=== PATIENT | male | born 1965 | race African-American/Black ===

== ENCOUNTER 2021-01-21 09:06 | Emergency (ER) | payer MEDICAID ==
[~2021-01-21] VITALS: Ht 185.4 cm; Wt 95.0 kg
[2021-01-21 09:43] VITALS: BP 137/85
[2021-01-21] MEDS ORDERED: MORPHINE SULFATE 4 MG/ML CPJ (NOT FOR IM USE) IV STA (09:43)
[2021-01-21] MEDS ORDERED: SODIUM CHLORIDE 0.9% 1,000 ML IV ONE (09:45)
[2021-01-21 09:59] LABS: HEMATOCRIT. 44.1 % (42.0-52.0); HEMOGLOBIN. 14.9 g/dL (14.0-18.0); MEAN CORPUSCULAR HEMOGLOBIN 28.3 pg (28.0-32.0); MEAN CORPUSCULAR VOLUME 83.4 fL (80.0-94.0); PLATELET 150 x1000/uL (130-400); RED BLOOD CELL COUNT 5.29 mill/uL (4.7-6.1); RED CELL DISTRIBUTION WIDTH 13.6 % (11.6-14.6)
[2021-01-21 10:00] LABS: CHLORIDE 105 mEq/L (98-107)
[2021-01-21 10:48] LABS: PLATELET ESTIMATE NORMAL
== END 2021-01-21 12:30 | disposition home or self-care (01) ==
LOC: ER 09:06
DX: K52.9 Noninfective gastroenteritis and colitis, unspecified (principal); R00.0 Tachycardia, unspecified; I10 Essential (primary) hypertension; E11.9 Type 2 diabetes mellitus without complications; Z88.0 Allergy status to penicillin
CPT/HCPCS: 36415; 74176; 80053; 83690; 85025; 93005; 96361; 96374; 99285; J2270; J7030; Z7610